=== PATIENT | male | born 1950 | race Caucasian/White ===

== ENCOUNTER 2025-03-29 12:19 | Emergency (ER) | payer SELFPAY ==
[~2025-03-29] VITALS: Ht 170.2 cm; Wt 65.0 kg
[2025-03-29 12:22] VITALS: O2SAT 99
[2025-03-29] MEDS ORDERED: METH-653 MT (16:21)
[2025-03-29] MEDS ORDERED: LIDO700A30 TP (16:21)
[2025-03-29] MEDS ORDERED: IBUP-1455 MT (16:21)
[2025-03-29 16:56] VITALS: BP 160/75; PULSE 80; RESP 14; TEMP 36.9; O2SAT 99
[2025-03-29] MEDS: IBUPROFEN 600MG TABLET PO ONE (16:56)
[2025-03-29] MEDS: METHOCARBAMOL 500MG TABLET PO ONE (16:56)
== END 2025-03-29 16:57 | disposition home or self-care (01) ==
LOC: ER 13:56
DX: S13.4XXA Sprain of ligaments of cervical spine, initial encounter (principal); S43.402A Unspecified sprain of left shoulder joint, initial encounter; I10 Essential (primary) hypertension; E78.00 Pure hypercholesterolemia, unspecified; E11.9 Type 2 diabetes mellitus without complications; V43.52XA Car driver injured in collision with other type car in traffic accident, initial encounter; Y93.89 Activity, other specified; Y92.410 Unspecified street and highway as the place of occurrence of the external cause; Y99.8 Other external cause status
CPT/HCPCS: 73030; 99283